=== PATIENT | male | born 1955 | race Caucasian/White ===

== ENCOUNTER 2023-02-03 12:06 | Emergency (ER) | payer MEDICARE | END 2023-02-03 13:11 | disposition home or self-care (01) | LOC: MADERS 12:06 | DX: N45.1 Epididymitis (principal); I10 Essential (primary) hypertension; F17.290 Nicotine dependence, other tobacco product, uncomplicated; Z79.899 Other long term (current) drug therapy | CPT/HCPCS: 99283 ==

== ENCOUNTER 2024-01-06 13:42 | Emergency (ER) | payer MEDICARE ==
[2024-01-06] MEDS ORDERED: Bacitracin 1 PK ONE (14:13)
[2024-01-06] MEDS ORDERED: Lidocaine 1% PF 5 ML VIAL ONE (14:13)
== END 2024-01-06 15:00 | disposition home or self-care (01) ==
LOC: MADERS 13:42
DX: M70.22 Olecranon bursitis, left elbow (principal); E78.00 Pure hypercholesterolemia, unspecified; I10 Essential (primary) hypertension; Z79.899 Other long term (current) drug therapy
CPT/HCPCS: 10060; 87070; 87205